=== PATIENT | male | born 1940 | race Caucasian/White ===

== ENCOUNTER 2016-12-14 00:37 | Emergency (ER) | payer MEDICARE, OTHER ==
[~2016-12-14] VITALS: Ht 152.4 cm; Wt 80.0 kg
[~2016-12-14 00:37] MED LIST: ROBIDM5S PO; TAB-TAB PO; ZITH250T PO
[2016-12-14 00:39] VITALS: BP 154/74; PULSE 79; RESP 16; TEMP 98.7; O2SAT 97
[2016-12-14 00:57] VITALS: BP 164/79; PULSE 78; RESP 18; O2SAT 99
[2016-12-14 01:11] VITALS: BP_SYST 129; BP_SYST 140; BP_SYST 146; BP_DIAS 67; BP_DIAS 73; BP_DIAS 79; RESP 18; O2SAT 98
[2016-12-14] MEDS ORDERED: SODIUM CHLORIDE 0.9% FLUSH 10 ML FLUSH IVF PRN (01:15)
[2016-12-14] MEDS ORDERED: SODIUM CHLORID 0.9% 500 ML INJ 500 ML IV ONE (01:15)
[2016-12-14 01:21] LABS: AUTOMATED NEUTROPHIL # 4.7 TH/MM3 (1.8-7.7); BASOPHIL % 0.6 % (0.0-2.0); EOSINOPHIL % 0.2 % (0.0-4.0); HEMATOCRIT 41.3 % (39.0-51.0); HEMO FLAGS DIFF FINAL; LYMPH % 17.4 % (9.0-44.0); LYMPHOCYTE # 1.1 TH/MM3 (1.0-4.8); MEAN CORPUSCULAR HEMOGLOBIN 30.2 PG (27.0-34.0); MEAN CORPUSCULAR HGB CONC 34.7 % (32.0-36.0); MONO % 10.2 % (0.0-8.0); NEUT % 71.6 % (16.0-70.0); PLATELET COUNT 188 TH/MM3 (150-450); RED BLOOD COUNT 4.75 MIL/MM3 (4.50-5.90); RED CELL DISTRIBUTION WIDTH 14.1 % (11.6-17.2); WHITE BLOOD COUNT 6.6 TH/MM3 (4.0-11.0)
--- NOTE | 2016-12-14 01:21 | PD ---
HPI Chief Complaint: Dizziness Time Seen by Provider: 00:52 Travel History International Travel<30 days: No Contact w/Intl Traveler<30days: No Traveled to known affect area: No History of Present Illness HPI The patient is a 76-year-old male who presents emergency department for dizziness. The patient states his symptoms started on Tuesday afternoon with lightheadedness, dizziness, generalized malaise, decreased appetite. The patient has dizziness with episodes of poor balance and a spinning sensation, worse with moving his head to the left and right, and occasionally worse with standing upright. The patient's symptoms are intermittent and not associated with any headache, chest pain, short of breath, nausea, vomiting, or abdominal pain. He denies any focal deficits. The patient denies any known history of vertigo or previous CVA/TIA. The patient does not currently have a primary physician. PFSH Past Medical History Hx Anticoagulant Therapy: No Diabetes: Yes (BORDERLINE) Patient Takes Glucophage: Yes Tetanus Vaccination: < 5 Years Influenza Vaccination: No Past Surgical History Surgical History: No Previous Surgery Social History Alcohol Use: No Tobacco Use: No Substance Use: No Allergies-Medications (Allergen,Severity, Reaction): Coded Allergies: No Known Allergies (Verified , 12/14/16) Reported Meds & Prescriptions Reported Meds & Active Scripts Active Reported Sertraline (Sertraline HCl) 25 Mg Tab 25 Mg PO DAILY Levothyroxine (Levothyroxine Sodium) 25 Mcg Tab 25 Mcg PO DAILY Review of Systems Except as stated in HPI: all other systems reviewed are Neg General / Constitutional: No: Fever HENT: Positive: Vertigo, Lightheadedness, No: Headaches Cardiovascular: No: Chest Pain or Discomfort, Tachycardia, Diaphoresis Respiratory: No: Shortness of Breath Gastrointestinal: No: Nausea, Vomiting Musculoskeletal: No: Weakness Neurologic: Positive: Dizziness, No: Focal Abnormalities, Change in Mentation , Slurred Speech, Paresthesia, Sensory Disturbance Physical Exam Narrative GENERAL: Awake, alert, pleasant 76-year-old male who appears his stated age and is in no acute respiratory distress. SKIN: Focused skin assessment warm/dry. HEAD: Atraumatic. Normocephalic. EYES: Pupils equal and round. 3 mm bilateral and reactive. EOMs are intact. No obvious nystagmus. ENT: No nasal bleeding or discharge. Mucous membranes pink and moist. NECK: Trachea midline. No JVD. CARDIOVASCULAR: Regular rate and rhythm. No murmur appreciated. RESPIRATORY: No accessory muscle use. Clear to auscultation. Breath sounds equal bilaterally. GASTROINTESTINAL: Abdomen soft, non-tender, nondistended. No rebound tenderness. MUSCULOSKELETAL: No obvious deformities. No clubbing. No cyanosis. No edema. NEUROLOGICAL: Awake and alert. No obvious cranial nerve deficits. Motor grossly within normal limits. Normal speech. Nonfocal. Oriented 3. Follows commands without difficulty. PSYCHIATRIC: Appropriate mood and affect; insight and judgment normal. Data Data Last Documented VS Vital Signs Date Time Temp Pulse Resp B/P Pulse Ox O2 Delivery O2 Flow Rate FiO2 12/14/16 02:10 68 18 137/68 99 Room Air 12/14/16 00:39 98.7 Orders Electrocardiogram (12/14/16 01:01) Complete Blood Count With Diff (12/14/16 01:01) Comprehensive Metabolic Panel (12/14/16 01:01) Magnesium (Mg) (12/14/16 01:01) Ckmb (Isoenzyme) Profile (12/14/16 01:01) Troponin I (12/14/16 01:01) Urinalysis - C+S If Indicated (12/14/16 01:01) Chest, Single Ap (12/14/16 01:01) Ct Brain W/O Iv Contrast(Rout) (12/14/16 01:01) Ecg Monitoring (12/14/16 01:01) Iv Access Insert/Monitor (12/14/16 01:01) Oximetry (12/14/16 01:01) Sodium Chloride 0.9% Flush (Ns Flush) (12/14/16 01:15) Orthostatic Vital Signs (12/14/16 01:01) Sodium Chlorid 0.9% 500 Ml Inj (Ns 500 M (12/14/16 01:15) CKMB (12/14/16 01:10) CKMB% (12/14/16 01:10) Labs Laboratory Tests Test 12/14/16 01:10 White Blood Count 6.6 TH/MM3 Red Blood Count 4.75 MIL/MM3 Hemoglobin 14.3 GM/DL Hematocrit 41.3 % Mean Corpuscular Volume 87.0 FL Mean Corpuscular Hemoglobin 30.2 PG Mean Corpuscular Hemoglobin 34.7 % Concent Red Cell Distribution Width 14.1 % Platelet Count 188 TH/MM3 Mean Platelet Volume 8.3 FL Neutrophils (%) (Auto) 71.6 % Lymphocytes (%) (Auto) 17.4 % Monocytes (%) (Auto) 10.2 % Eosinophils (%) (Auto) 0.2 % Basophils (%) (Auto) 0.6 % Neutrophils # (Auto) 4.7 TH/MM3 Lymphocytes # (Auto) 1.1 TH/MM3 Monocytes # (Auto) 0.7 TH/MM3 Eosinophils # (Auto) 0.0 TH/MM3 Basophils # (Auto) 0.0 TH/MM3 CBC Comment DIFF FINAL Differential Comment Sodium Level 135 MEQ/L Potassium Level 4.0 MEQ/L Chloride Level 98 MEQ/L Carbon Dioxide Level 26.8 MEQ/L Anion Gap 10 MEQ/L Blood Urea Nitrogen 10 MG/DL Creatinine 1.27 MG/DL Estimat Glomerular Filtration 55 ML/MIN Rate Random Glucose 119 MG/DL Calcium Level 8.9 MG/DL Magnesium Level 2.0 MG/DL Total Bilirubin 0.8 MG/DL Aspartate Amino Transf 23 U/L (AST/SGOT) Alanine Aminotransferase 27 U/L (ALT/SGPT) Alkaline Phosphatase 76 U/L Total Creatine Kinase 234 U/L Creatine Kinase MB 1.6 NG/ML Troponin I LESS THAN 0.02 NG/ML Total Protein 8.4 GM/DL Albumin 3.7 GM/DL [facility] Medical Decision Making Medical Screen Exam Complete: Yes Emergency Medical Condition: Yes Medical Record Reviewed: Yes Interpretation(s) EKG reveals sinus rhythm with sinus arrhythmia. Nonspecific T wave changes. Laboratory Tests Test 12/14/16 01:10 White Blood Count 6.6 TH/MM3 Red Blood Count 4.75 MIL/MM3 Hemoglobin 14.3 GM/DL Hematocrit 41.3 % Mean Corpuscular Volume 87.0 FL Mean Corpuscular Hemoglobin 30.2 PG Mean Corpuscular Hemoglobin 34.7 % Concent Red Cell Distribution Width 14.1 % Platelet Count 188 TH/MM3 Mean Platelet Volume 8.3 FL Neutrophils (%) (Auto) 71.6 % Lymphocytes (%) (Auto) 17.4 % Monocytes (%) (Auto) 10.2 % Eosinophils (%) (Auto) 0.2 % Basophils (%) (Auto) 0.6 % Neutrophils # (Auto) 4.7 TH/MM3 Lymphocytes # (Auto) 1.1 TH/MM3 Monocytes # (Auto) 0.7 TH/MM3 Eosinophils # (Auto) 0.0 TH/MM3 Basophils # (Auto) 0.0 TH/MM3 CBC Comment DIFF FINAL Differential Comment Sodium Level 135 MEQ/L Potassium Level 4.0 MEQ/L Chloride Level 98 MEQ/L Carbon Dioxide Level 26.8 MEQ/L Anion Gap 10 MEQ/L Blood Urea Nitrogen 10 MG/DL Creatinine 1.27 MG/DL Estimat Glomerular Filtration 55 ML/MIN Rate Random Glucose 119 MG/DL Calcium Level 8.9 MG/DL Magnesium Level 2.0 MG/DL Total Bilirubin 0.8 MG/DL Aspartate Amino Transf 23 U/L (AST/SGOT) Alanine Aminotransferase 27 U/L (ALT/SGPT) Alkaline Phosphatase 76 U/L Total Creatine Kinase 234 U/L Creatine Kinase MB 1.6 NG/ML Troponin I LESS THAN 0.02 NG/ML Total Protein 8.4 GM/DL Albumin 3.7 GM/DL Differential Diagnosis Differential diagnosis includes vertigo, labyrinthitis, cerebellar infarct, hyponatremia, orthostatic hypotension, arrhythmia, aortic stenosis, Mnire's disease. Narrative Course IV was established, labs are drawn and sent, and the patient was placed on cardiac telemetry monitoring and continuous pulse oximetry monitoring. EKG was ordered and interpreted. Orthostatic vital signs were obtained. CT of the brain was obtained. CT of the brain was negative. Chest x-ray was unremarkable. Orthostatic vital signs were within normal limits. The patient was reassessed at 2:30 AM, his symptoms had improved. Therefore, the patient was given a trial of ambulation. The patient was able to ambulate without difficulty. The friend/family member who accompany him stated the patient did stop taking his Zoloft and Synthroid several months ago. The patient is advised to follow-up with his primary physician, Dr. Bishop, to reevaluate his thyroid and reinitiate his Synthroid. Patient is stable for outpatient follow- up. Diagnosis Primary Impression: Dizziness Patient Instructions: General Instructions Additional Instructions: Please provide a patient a copy of his CT results, EKG, and lab results at discharge. Follow-up with your primary physician. Return if symptoms worsen or progress. Med/Other Pt SpecificInfo: Other (restart your Synthroid) Disposition: DISCHARGE HOME Condition: Stable Elijah Nichole MD Dec 14, 2016:20
--- NOTE | 2016-12-14 01:27 | RADRPT ---
EXAM DATE/TIME: 12/14/2016 01:02 [facility] COMPARISON: CHEST PA & LAT, October 30, 2015, 18:22. INDICATIONS : Cough, dizziness. MEDICAL HISTORY : None. SURGICAL HISTORY : None. ENCOUNTER: Initial ACUITY: 1 day PAIN SCORE: 0/10 LOCATION: Bilateral chest FINDINGS: Portable AP view of the chest demonstrates a normal-sized cardiac silhouette. No effusion, consolidat ion, or pneumothorax is visualized. The bones and soft tissues demonstrate no acute abnormality. Lung s are underinflated. There is atelectasis at the right lung base. CONCLUSION: No acute cardiopulmonary abnormality is identified. Matt Redding MD on December 14, 2016 at 1:25 Board Certified Radiologist. This report was verified electronically.
[2016-12-14] MEDS ORDERED: LEVO25TA4 PO (01:28)
[2016-12-14] MEDS ORDERED: SERT25TA83 PO (01:29)
--- NOTE | 2016-12-14 01:29 | RADRPT ---
EXAM DATE/TIME: 12/14/2016 01:17 [facility] COMPARISON: No previous studies available for comparison. INDICATIONS : Dizziness. RADIATION DOSE: 34.81 CTDIvol (mGy) MEDICAL HISTORY : None SURGICAL HISTORY : None. ENCOUNTER: Initial ACUITY: 1 day PAIN SCALE: 0/10 LOCATION: cranial TECHNIQUE: Multiple contiguous axial images were obtained of the head. Using automated exposure control and adj ustment of the mA and/or kV according to patient size, radiation dose was kept as low as reasonably a chievable to obtain optimal diagnostic quality images. DICOM format image data is available electro nically for review and comparison. FINDINGS: CEREBRUM: There is generalized atrophy. Ventricles are normal. No evidence of midline shift, mass lesion, hemo rrhage or acute infarction. No extra-axial fluid collections are seen. POSTERIOR FOSSA: The cerebellum and brainstem demonstrate no acute finding. The 4th ventricle is midline. The cerebe llopontine angle is unremarkable. EXTRACRANIAL: There is mucoperiosteal thickening within the sphenoid and ethmoid sinus. SKULL: The calvaria is intact. No evidence of skull fracture. CONCLUSION: No acute intracranial abnormality is identified. Matt Redding MD on December 14, 2016 at 1:26 Board Certified Radiologist. This report was verified electronically.
[2016-12-14 01:47] LABS: ALT (GPT) 27 U/L (12-78); ANION GAP 10 MEQ/L (5-15); AST (GOT) 23 U/L (15-37); BICARBONATE 26.8 MEQ/L (21.0-32.0); BLOOD UREA NITROGEN 10 MG/DL (7-18); CHLORIDE 98 MEQ/L (98-107); GLOMERULAR FILTRATION RATE 55 ML/MIN (>89); SODIUM (NA) 135 MEQ/L (136-145)
[2016-12-14 01:52] LABS: ALKALINE PHOSPHATASE 76 U/L (45-117); CREATINE KINASE 234 U/L (39-308); TOTAL BILIRUBIN ADULT 0.8 MG/DL (0.2-1.0)
[2016-12-14 02:04] LABS: CKMB 1.6 NG/ML (0.5-3.6)
[2016-12-14 02:10] VITALS: BP 137/68; PULSE 68; RESP 18; O2SAT 99
[2016-12-14 02:47] LABS: BLOOD, URINE NEG (NEG); COMMENT (UR) CULT NOT INDICATED; CULTURE IF INDICATED CULT NOT INDICATED; GLUCOSE,URINE NEG (NEG); KETONE, URINE NEG (NEG); MUCUS URINE FEW /lpf (OCC); NITRITE,URINE NEG (NEG); PH, URINE 7.5 (5.0-8.5); RENAL EPITHELIAL CELLS <1 /hpf; URINE COLOR YELLOW (YELLW/STRAW)
--- NOTE | 2016-12-14 11:53 | EKG ---
Date Performed: 12/14/2016 Time Performed: 01:03:29 PTAGE: 76 years EKG: Sinus rhythm WITH SINUS ARRHYTHMIA BORDERLINE LEFT AXIS DEVIATION NONSPECIFIC T-WAVE ABNORMALITY BORDERLINE ECG NO PREVIOUS TRACING DOCTOR: Greg Kidd Interpretating Date/Time 12/14/2016 11:49:19
== END 2016-12-14 02:44 | disposition home or self-care (01) ==
LOC: NEPE 00:37
DX: R42 Dizziness and giddiness (principal); I49.8 Other specified cardiac arrhythmias; R53.81 Other malaise; E11.9 Type 2 diabetes mellitus without complications; R94.31 Abnormal electrocardiogram [ECG] [EKG]; Z79.899 Other long term (current) drug therapy
CPT/HCPCS: 70450; 71010; 80053; 81001; 82550; 82552; 83735; 84484; 85025; 93005; 96360; 99285; J7040